=== PATIENT | female | born 1945 ===

== ENCOUNTER 2023-06-17 14:04 | Outpatient (CLI) | payer BC, MEDICAID ==
[2023-06-17 14:41] LABS: BLOOD UREA NITROGEN 10 MG/DL (7-18); CREATININE 0.73 MG/DL (0.40-0.90); VANCOMYCIN,TROUGH 6.8 ug/mL (10.0-20.0); eGFR 77 ML/MIN
== END 2023-06-17 23:59 | disposition home or self-care (01) ==
LOC: LAB 14:04
PROVIDERS: ATTEND General Practice
DX: M00.831 Arthritis due to other bacteria, right wrist (principal)
CPT/HCPCS: 36415; 80202; 82565; 84520

== ENCOUNTER 2024-11-10 20:53 | Emergency (ER) | payer BC, MEDICAID ==
[~2024-11-10] VITALS: Ht 170.2 cm; Wt 36.0 kg
[2024-11-10] MEDS ORDERED: LEVE250T PO (21:39)
[2024-11-10] MEDS ORDERED: LEVE250T4 PO (21:43)
[2024-11-10 21:52] VITALS: BP 109/71; PULSE 111; RESP 16; TEMP 98.1; O2SAT 99
== END 2024-11-10 21:53 | disposition home or self-care (01) ==
LOC: ER 20:53
DX: Z00.8 Encounter for other general examination (principal); R56.9 Unspecified convulsions
CPT/HCPCS: 99283